=== PATIENT | male | born 1960 | race Caucasian/White ===

== ENCOUNTER 2018-09-15 07:22 | Observation (INO) | payer OTHER, BC ==
[~2018-09-15 07:22] MED LIST: CIPRO 400 MG/200 ML D5W IVPB; CIPROFLOXACIN 400 MG in D5W 200 ML IVPB
[2018-09-15] MEDS ORDERED: PROPOFOL 20 ML (09:39)
[2018-09-15] MEDS ORDERED: FENTAnyl 50 MCG/ML VIAL (09:39)
[2018-09-15] MEDS ORDERED: MIDAZOLAM 1 MG/ML 2 ML INJ (09:39)
[2018-09-15] MEDS ORDERED: ROCURONIUM 50 MG INJ (09:39)
[2018-09-15] MEDS ORDERED: CEFAZOLIN 1 GM INJ (09:39)
[2018-09-15] MEDS ORDERED: hydrALAzine 20 MG INJ (09:49)
[2018-09-15] MEDS ORDERED: DEXAMETHASONE 4 MG/ML 5 ML INJ (10:17)
[2018-09-15] MEDS ORDERED: METOCLOPRAMIDE 10 MG INJ (10:17)
[2018-09-15] MEDS ORDERED: KETOROLAC 30 MG INJ (10:17)
[2018-09-15] MEDS ORDERED: ONDANSETRON 4 MG INJ (10:17)
[2018-09-15] MEDS ORDERED: FAMOTIDINE 20 MG INJ (10:18)
[2018-09-15] MEDS ORDERED: SUGAMMADEX SODIUM 200 MG/2 ML VIAL IV (10:18)
[2018-09-15] MEDS ORDERED: PHENYLephrine (100 MCG/ML) 10ML SYG (10:21)
[2018-09-15] MEDS ORDERED: FENTAnyl 50 MCG/ML VIAL IV ×3 (10:30)
[2018-09-15] MEDS ORDERED: LABETALOL HCL 20MG INJ IV (10:30)
[2018-09-15] MEDS ORDERED: DIPHENHYDRAMINE 50 MG INJ IV (10:30)
[2018-09-15] MEDS ORDERED: OXYCODONE/ACETAMINOPHEN (5/325) TAB PO (10:30)
[2018-09-15] MEDS ORDERED: HYDROmorphONE 1 MG/5 ML IV SYRINGE IV ×3 (10:30)
[2018-09-15] MEDS ORDERED: METOCLOPRAMIDE 10 MG INJ IV (10:30)
[2018-09-15] MEDS ORDERED: EPHEDrine SULFATE 50 MG/5 ML SYG IV (10:30)
[2018-09-15] MEDS ORDERED: MEPERIDINE 25 MG INJ IV (10:30)
[2018-09-15] MEDS ORDERED: hydrALAzine 20 MG INJ IV (10:30)
[2018-09-15] MEDS: BELLADONNA ALK/OPIUM SUPP PR (10:51)
[2018-09-15] MEDS ORDERED: morphine 2 MG INJ IV (11:00)
[2018-09-15] MEDS ORDERED: MAGNESIUM HYDROXIDE 30ML CUP PO (11:00)
[2018-09-15] MEDS ORDERED: BELLADONNA ALK/OPIUM SUPP PR (11:00)
[2018-09-15] MEDS ORDERED: HYDROCODONE/APAP (5/325) TAB PO (11:00)
[2018-09-15] MEDS: ONDANSETRON 4 MG INJ IV (11:35)
[2018-09-15] MEDS: LOSARTAN 50 MG TAB PO (13:00)
[2018-09-15] MEDS: DEXTROSE 5%-0.45% NACL 1,000 ML IV ×2 (15:22→22:28)
[2018-09-15] MEDS: CIPROFLOXACIN 500 MG TAB PO (18:27)
[2018-09-15] MEDS: DOCUSATE SODIUM 100 MG CAP PO (20:20)
[2018-09-15] MEDS: TAMSULOSIN (SR) 0.4 MG CAP PO (20:20)
[2018-09-16] MEDS: ZOLPIDEM 5 MG TAB PO (00:43)
[2018-09-16] MEDS: CIPROFLOXACIN 500 MG TAB PO (06:03)
[2018-09-16] MEDS: DOCUSATE SODIUM 100 MG CAP PO (09:09)
[2018-09-16] MEDS: LOSARTAN 50 MG TAB PO (09:10)
== END 2018-09-16 17:20 | disposition home or self-care (01) ==
LOC: SDS 07:22 → REC 10:47 → MS1 11:43
DX: C61 Malignant neoplasm of prostate (principal); I10 Essential (primary) hypertension
CPT/HCPCS: 52630; 88305; G0378